=== PATIENT | male | born 1970 | race Caucasian/White ===

== ENCOUNTER 2019-12-17 16:15 | Emergency (ER) | payer BC, OTHER ==
[~2019-12-17] VITALS: Ht 188 cm; Wt 131.5 kg
[2019-12-17] MEDS ORDERED: ONDANSETRON HCL INJ 2MG/ML 2ML 2 MG/ML VIAL IV ONE (16:33)
[2019-12-17] MEDS ORDERED: CEFAZOLIN SOD 1 GM/NS 50ML 50 ML IV ONE (16:45)
[2019-12-17] MEDS ORDERED: MORPHINE SULFATE INJ 4 MG/ML INJ 1ML IV PRN (16:45)
[2019-12-17] MEDS ORDERED: LIDOCAINE HCL 1% LOCAL INJ 20 ML VIAL INJ ONE (16:45)
--- OUTSIDE RECORDS SUMMARY | 2019-12-17 17:13 | XMS REPORT | Continuity of Care Document ---
Author Author [facility] Organization [facility] Address [address] [place] [address] Phone Unavailable Care Team Providers Care Lay Out Former Name Role Phone Unavailable Unavailable Payers Payer Name Policy Type Policy Number Effective Date Expiration Date S ource Problems This patient has no known problems. Allergies, Adverse Reactions, Alerts Allergy Name Allergy Type Status Severity Reaction(s) Onset Date Inacti ve Date Treating Clinician Comments Source No Known Drug Intolerances DA Active U 2006-11-14 00:00:0 0 [facility] No Known Contrast Allergies DA Active U 2006-11-14 00:00: 00 [facility] No Known Drug Allergies DA Active U 2006-11-14 00:00:00 [facility] No Known Food Allergies DA Active U 2006-11-14 00:00:00 [facility] No Known Other Allergies DA Active U 2006-11-14 00:00:00 [facility] Medications This patient has no known medications. Procedures This patient has no known procedures. Results This patient has no known results.
[2019-12-17] MEDS ORDERED: CEFTRIAXONE SOD 1 GM/NS 50 ML 50 ML IV ONE (17:15)
--- NOTE | 2019-12-17 17:47 | Emergency Department Note ---
History of Present Illnes History of Present Illness Chief Complaint: General Medicine Complaints History of Present Illness This is a 49 year old male arrived to the ED after having a fish hook stuck in his thumb. Historian: Patient, Family Member Arrival Mode: Car Onset (how long ago): hour(s) Severity: mild Duration (how long): hour(s) Progression: unchanged Context: Reports trauma/injury Past Medical/Family History Physician Review I have reviewed the patient's past medical and family history. Any updates have been documented here. Past Medical History Recent Fever: No Clinical Suspicion of Infectio: No New/Unexplained Change in Ment: No Past Medical History: Hypertension, Diabetes, GERD, Hyperlipedemia Other Medical History: CHOLESTEROL INDIGESTION Past Surgical History: Back Surgery Other Surgery: BACK SURGERY VASECTOMY Social History Smoking Cessation: Never Smoker Counseling Performed: No Alcohol Use: Occasional Any Illegal Drug Use: No Other Any Pre-Existing Lines (PICC,: No Review of Systems Review of Systems Constitutional: Reports no symptoms EENTM: Reports no symptoms Cardiovascular: Reports no symptoms Respiratory: Reports no symptoms Gastrointestinal: Reports no symptoms Genitourinary: Reports no symptoms Musculoskeletal: Reports as per HPI Integumentary: Reports no symptoms Neurological: Reports no symptoms Psychological: Reports no symptoms Endocrine: Reports no symptoms Hematological/Lymphatic: Reports no symptoms Physical Exam Related Data Allergies: Coded Allergies: No Known Allergies (Unverified , 04/06/16) Triage Vital Signs Vital Signs Date Time Temp Pulse Resp B/P (MAP) Pulse Ox O2 Delivery O2 Flow Rate FiO2 12/17/19 16:19 97.4 75 18 149/93 96 Room Air Vital signs reviewed: Yes Physical Exam CONSTITUTIONAL Constitutional: Present well-developed, Present well-nourished HENT HENT: Present normocephalic, Present atraumatic, Present oropharynx clear/moist, Present nose normal HENT L/R: Present left ext ear normal, Present right ext ear normal EYES Eyes: Reports PERRL, Reports conjunctivae normal NECK Neck: Present ROM normal PULMONARY Pulmonary: Present effort normal, Present breath sounds normal CARDIOVASCULAR Cardiovascular: Present regular rhythm, Present heart sounds normal, Present capillary refill normal, Present normal rate GASTROINTESTINAL Abdominal: Present soft, Present nontender, Present bowel sounds normal GENITOURINARY Genitourinary: Present exam deferred SKIN Skin: Present warm, Present dry, Present other (three prong fish hook noted in right volar aspect of thumb) MUSCULOSKELETAL Musculoskeletal: Present ROM normal NEUROLOGICAL Neurological: Present alert, Present oriented x 3, Present no gross motor or sensory deficits PSYCHOLOGICAL Psychological: Present mood/affect normal, Present judgement normal Results Imaging Imaging results reviewed: Yes Impressions IMPRESSION: 1. Hart deep in the palmar soft tissues of the thumb. 2. No acute fracture or evidence of dislocation. Procedures Foreign Body Site: left, right Description: fish hook Technique: incision made to facilitate removal Confirmed by: direct visualization Complications: none Post procedure exame: awake, alert Neurovascular: normal distal pulse, normal capillary fill, distal light touch sensation, normal distal motor function, no signs of compartment syndrome, no change from pre-procedure Assessment & Plan Medical Decision Making MDM 49-year-old male arrives to the ED with a fishhook stuck in his thumb, digital block done and fish was subsequently removed. Patient is a diabetic. Patient placed on prophylactic antibiotics. Spoke to patient at length about performing appropriate wound care which included Betadine soaks. Patient expressed understanding. Patient stable for discharge Assessment & Plan Final Impression: (1) Fish hook injury of right thumb Depart Disposition: HOME, SELF-CARE Last Vital Signs Date Time Temp Pulse Resp B/P (MAP) Pulse Ox O2 Delivery O2 Flow Rate FiO2 12/17/19 16:19 97.4 75 18 149/93 96 Room Air Home Meds Active Scripts Tramadol Hcl (ULTRAM) 50 Mg Tablet, 50 MG PO Q6HR PRN for Mild Pain (1-3) or Fever>100.8, #14 TAB Prov:DAIJA RAO, DO 12/17/19 Lactobacillus Acidophilus (ACIDOPHILUS) 1 Each Tab.chew, 1 TAB PO BID, #20 Prov:MALINI RAOICA, DO 12/17/19 Clindamycin Hcl (CLINDAMYCIN HCL) 300 Mg Capsule, 300 MG PO Q6H, #28 Prov:DAIJA RAO, DO 12/17/19 Levofloxacin (LEVAQUIN) 500 Mg Tablet, 500 MG PO DAILY, #10 TAB 0 Refills Prov:DAIJA RAO, 12/17/19 Medications in the ED Cefazolin Sodium 50 ml @ 100 mls/hr ONCE ONCE IV ; Start 12/17/19 at 16:45; Stop 12/17/19 at 17:04; Status DC Morphine Sulfate 4 mg NOW PRN IV SEVERE PAIN (7-10) Last administered on 12/17/19at 17:02; Admin Dose 4 MG; Start 12/17/19 at 16:45; Stop 12/24/19 at 16:44 Ondansetron HCl 4 mg NOW ONCE IV Last administered on 12/17/19at 17:02; Admin Dose 4 MG; Start 12/17/19 at 16:33; Stop 12/17/19 at 16:50; Status DC Lidocaine HCl ONCE ONCE INJ ; Start 12/17/19 at 16:45; Stop 12/17/19 at 16:50; Status DC Ceftriaxone Sodium 50 ml @ 100 mls/hr ONCE ONCE IV ; Start 12/17/19 at 17:15; Stop 12/17/19 at 17:44 DAIJA RAO DO Dec 17, 2019 17:48
--- NOTE | 2019-12-17 18:15 | Diagnostic Imaging Report ---
HAND RIGHT 2 VIEWS - 3 views HISTORY: Pain. COMPARISON: None available. FINDINGS: Bones/joints: No acute fracture or evidence of dislocation. Soft tissues: There is a fishhook deep in the palmar soft tissues of the thumb. IMPRESSION: 1. Alder deep in the palmar soft tissues of the thumb. 2. No acute fracture or evidence of dislocation. Signed by: Arely Leung MD on 12/17/2019 6:11 PM
[2019-12-17] MEDS ORDERED: ACIDOPHILUS1 EAC1 PO (18:27)
[2019-12-17] MEDS ORDERED: CLINDAMYCIN HC300 MG PO (18:27)
[2019-12-17] MEDS ORDERED: LEVAQUIN500 MG PO (18:27)
[2019-12-17] MEDS ORDERED: ULTRAM50 MG PO (18:28)
[2019-12-17] MEDS ORDERED: HYDROCODONE/APAP 10MG-325MG TAB PO ONE (18:30)
[2019-12-17] MEDS ORDERED: HYDROCODONE/APAP 10MG-325MG TAB ONE (18:31)
== END 2019-12-17 18:42 | disposition home or self-care (01) ==
LOC: ER 17:10
DX: S61.021A Laceration with foreign body of right thumb without damage to nail, initial encounter (principal); W26.8XXA Contact with other sharp object(s), not elsewhere classified, initial encounter; Y93.19 Activity, other involving water and watercraft; Y92.828 Other wilderness area as the place of occurrence of the external cause; I10 Essential (primary) hypertension; E11.9 Type 2 diabetes mellitus without complications; E78.5 Hyperlipidemia, unspecified; K21.9 Gastro-esophageal reflux disease without esophagitis
CPT/HCPCS: 99284; J0696; J2001; J2270; J2405

== ENCOUNTER 2021-09-12 02:06 | Emergency (ER) | payer OTHER ==
[~2021-09-12] VITALS: Ht 188 cm; Wt 131.5 kg
[~2021-09-12 02:06] MED LIST: ACIDOPHILUS1 EAC1 PO; CLINDAMYCIN HC300 MG PO; LEVAQUIN500 MG PO; ULTRAM50 MG PO
[2021-09-12] MEDS ORDERED: ONDANSETRON HCL INJ 2MG/ML 2ML 2 MG/ML VIAL IV STA (02:12)
[2021-09-12] MEDS ORDERED: MECLIZINE HCL 12.5 MG TAB PO ONE (02:15)
[2021-09-12 02:33] LABS: BASOPHILS % 0.4 % (0.0-1.0); EOSINOPHILS # (AUTO) 0.1 (0.0-0.4); EOSINOPHILS % 2.2 % (0.0-6.0); HEMOGLOBIN 16.1 g/dL (14.0-18.0); LYMPHOCYTES # (AUTO) 1.6 (1.0-3.2); LYMPHOCYTES % 29.3 % (18.0-39.1); MEAN CORPUSCULAR HEMOGLOBIN 30.3 pg (28-32); MEAN CORPUSCULAR HGB CONC 34.3 g/dL (31-35); MEAN CORPUSCULAR VOLUME 88.3 fL (81-99); MONOCYTES # (AUTO) 0.6 (0.2-0.8); MONOCYTES % 11.5 % (4.4-11.3); NEUTROPHILS # (AUTO) 3.2 (2.1-6.9); NEUTROPHILS % 56.4 % (38.7-80.0); PLATELET COUNT 182 x10e3/uL (140-360); RED BLOOD COUNT 5.32 x10e6/uL (4.3-5.7); RED CELL DISTRIBUTION WIDTH 13.2 % (11.7-14.4)
[2021-09-12] MEDS ORDERED: ONDANSETRON HCL INJ 2MG/ML 2ML 2 MG/ML VIAL ONE (02:33)
[2021-09-12 02:53] LABS: ALANINE AMINOTRANSFERASE 40 IU/L (0-55); ALBUMIN 4.1 g/dL (3.5-5.0); ALBUMIN/GLOBULIN RATIO 1.2 (0.8-2.0); ALKALINE PHOSPHATASE 59 IU/L (40-150); ANION GAP 18.3 mmol/L (8-16); BLOOD UREA NITROGEN 12 mg/dL (7-26); BUN/CREATININE RATIO 10 (6-25); CALCIUM 9.2 mg/dL (8.4-10.2); CARBON DIOXIDE 23 mmol/L (22-29); CHLORIDE 105 mmol/L (98-107); CREATINE KINASE 99 IU/L (30-200); CREATININE, SERUM 1.18 mg/dL (0.72-1.25); GLUCOSE 233 mg/dL (74-118); POTASSIUM 4.3 mmol/L (3.5-5.1); SODIUM 142 mmol/L (136-145)
== END 2021-09-12 04:20 | disposition home or self-care (01) ==
LOC: ER 02:07
DX: R42 Dizziness and giddiness (principal); R11.2 Nausea with vomiting, unspecified; E11.65 Type 2 diabetes mellitus with hyperglycemia; I10 Essential (primary) hypertension; E78.5 Hyperlipidemia, unspecified; K21.9 Gastro-esophageal reflux disease without esophagitis; R94.31 Abnormal electrocardiogram [ECG] [EKG]
CPT/HCPCS: 36415; 70450; 80053; 82550; 82553; 84484; 85025; 93005; 99283; J2405; J8597